=== PATIENT | female | born 1945 | race Hispanic/Latino ===

== ENCOUNTER 2023-10-20 12:40 | Inpatient (IN) | payer BC, MEDICARE ==
[2023-10-20] VITALS (7 sets, daily range): BP systolic 95–105; BP diastolic 43–56; PULSE 81–91; RESP 14–16; TEMP 97–98.1; O2SAT 100
[~2023-10-20] VITALS: Ht 152.4 cm; Wt 49.4 kg
[2023-10-20] MEDS ORDERED: ONDANSETRON HCL INJ 2MG/ML 2ML 2 MG/ML VIAL IV STA (13:15)
[2023-10-20 13:46] LABS: INR 1.76; PARTIAL THROMBOPLASTIN TIME 37.7 seconds (23.8-35.5); PROTHROMBIN TIME 20.9 seconds (11.9-14.5)
[2023-10-20] MEDS ORDERED: OCTREOTIDE ACETATE 0.05 MG/ML AMP IV STA (13:56)
[2023-10-20 13:58] LABS: EOSINOPHILS % 0.1 % (0.0-6.0); LYMPHOCYTES # (AUTO) 0.1 (1.0-3.2); LYMPHOCYTES % 1.5 % (18.0-39.1); MEAN CORPUSCULAR HEMOGLOBIN 23.4 pg (28-32); MEAN CORPUSCULAR VOLUME 86.7 fL (81-99); MONOCYTES # (AUTO) 0.3 (0.2-0.8); MONOCYTES % 4.6 % (4.4-11.3); NEUTROPHILS # (AUTO) 6.9 (2.1-6.9); NEUTROPHILS % 93.4 % (38.7-80.0); RED BLOOD COUNT 1.58 x10e6/uL (3.6-5.1); RED CELL DISTRIBUTION WIDTH 19.7 % (11.7-14.4); WHITE BLOOD COUNT 7.34 x10e3/uL (4.8-10.8)
[2023-10-20 14:01] LABS: PLATELET COUNT 76 x10e3/uL (140-360)
[2023-10-20 14:02] LABS: HEMATOCRIT 13.7 % (34.2-44.1); HEMOGLOBIN 3.7 g/dL (12.0-16.0)
[2023-10-20 14:04] LABS: ALANINE AMINOTRANSFERASE 44 IU/L (0-55); ALBUMIN 2.7 g/dL (3.5-5.0); ALBUMIN/GLOBULIN RATIO 0.9 (0.8-2.0); ALKALINE PHOSPHATASE 182 IU/L (40-150); ANION GAP 24.5 mmol/L (8-16); BILIRUBIN,TOTAL 2.9 mg/dL (0.2-1.2); CALCIUM 8.4 mg/dL (8.4-10.2); CARBON DIOXIDE 12 mmol/L (22-29); CHLORIDE 100 mmol/L (98-107); CREATINE KINASE 34 IU/L (29-168); CREATININE, SERUM 5.38 mg/dL (0.57-1.11); EST GLOMERULAR FILTRATION RATE 8 ML/MIN (>=60); GLUCOSE 356 mg/dL (74-118); MAGNESIUM 2.3 MG/DL (1.3-2.1); POTASSIUM 4.5 mmol/L (3.5-5.1); SODIUM 132 mmol/L (136-145); TOTAL PROTEIN 5.7 g/dL (6.5-8.1)
[2023-10-20 14:07] LABS: BLOOD UREA NITROGEN 176 mg/dL (7-26)
[2023-10-20 14:07] LABS: BILIRUBIN,URINE NEGATIVE (NEGATIVE); CLARITY,URINE SL CLOUDY (CLEAR); COLOR,URINE YELLOW (YELLOW); GLUCOSE, URINE 1+ (NEGATIVE); KETONES,URINE NEGATIVE (NEGATIVE); LEUKOCYTE ESTERASE ,URINE MODERATE (NEGATIVE); NITRITE,URINE NEGATIVE (NEGATIVE); PH,URINE 5.5 (5 - 7); PROTEIN,URINE DIPSTICK NEGATIVE (NEGATIVE); URINE UROBILINOGEN 0.2 mg/dL (0.2 - 1)
[2023-10-20] MEDS: OCTREOTIDE ACETATE 500 MCG in SODIUM CHLORIDE 0.9% 250ML 249 ML IV SCH ×2 (14:13→23:20)
[2023-10-20 14:16] LABS: BACTERIA,URINE MODERATE /HPF; EPITHELIAL CELLS,URINE FEW /LPF; RENAL EPITHELIAL CELLS,URINE MODERATE; TRANSITIONAL EPI CELLS,URINE MODERATE
[2023-10-20] MEDS ORDERED: SODIUM CHLORIDE 0.9% 250ML 500 ML ONE (15:17)
[2023-10-20] MEDS ORDERED: TORSEMIDE20 MG PO (16:11)
[2023-10-20] MEDS ORDERED: ALDACTONE25 MG PO (16:11)
[2023-10-20] MEDS ORDERED: NEPHRO-VITE TABL1 EA PO (16:11)
[2023-10-20] MEDS ORDERED: SODIUM BICARBO650 MG PO (16:11)
[2023-10-20] MEDS ORDERED: DEXTROSE 50% SYRINGE 50 ML IV PRN (16:30)
[2023-10-20 16:51] LABS: ABG HCO3 14 mmol/L (22-26); ABG PCO2 28 mmHg (35-45); ABG PH 7.31 (7.35-7.45); ABG PO2 100 mmHg (80-105); ABG TCO2 15
[2023-10-20] MEDS: INSULIN REGULAR, HUMAN 100 UNIT/1 ML SQ SCH ×2 (16:51→20:45)
[2023-10-20] MEDS ORDERED: SODIUM CHLORIDE 0.9% 250ML 250 ML ONE (19:37)
[2023-10-20] MEDS: SODIUM BICARBONATE 650 MG TAB PO SCH (20:46)
[2023-10-21] VITALS (8 sets, daily range): BP systolic 100–117; BP diastolic 47–61; PULSE 82–87; RESP 14–18; TEMP 97–97.8; O2SAT 100
[2023-10-21] MEDS ORDERED: FUROSEMIDE INJ 10 MG/ML 4 ML VIAL IV ONE (06:00)
[2023-10-21] MEDS: INSULIN REGULAR, HUMAN 100 UNIT/1 ML SQ SCH ×4 (07:30→20:48)
[2023-10-21] MEDS: SODIUM BICARBONATE 650 MG TAB PO SCH ×3 (08:26→20:48)
[2023-10-21] MEDS: SPIRONOLACTONE 25 MG TAB PO SCH (08:27)
[2023-10-21] MEDS: TORSEMIDE 10 MG TAB PO SCH (08:27)
[2023-10-21] MEDS: OCTREOTIDE ACETATE 500 MCG in SODIUM CHLORIDE 0.9% 250ML 249 ML IV SCH ×2 (09:18→19:20)
[2023-10-21 11:30] LABS: BASOPHILS % 0.2 % (0.0-1.0); EOSINOPHILS % 0.7 % (0.0-6.0); HEMATOCRIT 29.4 % (34.2-44.1); HEMOGLOBIN 9.4 g/dL (12.0-16.0); LYMPHOCYTES # (AUTO) 0.2 (1.0-3.2); LYMPHOCYTES % 3.7 % (18.0-39.1); MEAN CORPUSCULAR HEMOGLOBIN 27.3 pg (28-32); MEAN CORPUSCULAR VOLUME 85.5 fL (81-99); MONOCYTES # (AUTO) 0.3 (0.2-0.8); MONOCYTES % 4.9 % (4.4-11.3); NEUTROPHILS # (AUTO) 5.3 (2.1-6.9); PLATELET COUNT 29 x10e3/uL (140-360); RED BLOOD COUNT 3.44 x10e6/uL (3.6-5.1); RED CELL DISTRIBUTION WIDTH 16.4 % (11.7-14.4); WHITE BLOOD COUNT 5.87 x10e3/uL (4.8-10.8)
[2023-10-21 11:38] LABS: INR 1.41; PROTHROMBIN TIME 17.6 seconds (11.9-14.5)
[2023-10-21 11:57] LABS: ALANINE AMINOTRANSFERASE 40 IU/L (0-55); ALBUMIN 3.1 g/dL (3.5-5.0); ALKALINE PHOSPHATASE 145 IU/L (40-150); ANION GAP 24.3 mmol/L (8-16); CALCIUM 8.7 mg/dL (8.4-10.2); CARBON DIOXIDE 15 mmol/L (22-29); CHLORIDE 102 mmol/L (98-107); EST GLOMERULAR FILTRATION RATE 9 ML/MIN (>=60); GLUCOSE 191 mg/dL (74-118); POTASSIUM 4.3 mmol/L (3.5-5.1); SODIUM 137 mmol/L (136-145); TOTAL PROTEIN 6.2 g/dL (6.5-8.1)
[2023-10-21 12:00] LABS: BLOOD UREA NITROGEN 170 mg/dL (7-26)
[2023-10-21 12:07] LABS: TROPONIN I 0.059 ng/mL (0-0.300)
[2023-10-21] MEDS ORDERED: ALBUMIN 25% 12.5GM 50ML 100 ML IV ONE (15:36)
[2023-10-21] MEDS ORDERED: ALBUMIN 25% 25GM 100ML 100 ML IV ONE (15:45)
[2023-10-21] MEDS ORDERED: ALBUMIN 25% 25GM 100ML 0.25 GM/ML BTL IV ONE (15:45)
[2023-10-21 17:20] LABS: BODY FLUID APPEARANCE TURBID; BODY FLUID COLOR RED; BODY FLUID TYPE PERITONEAL; RBC,BODY FLUID 205000 cells/uL; WBC,BODY FLUID 386 cells/uL
[2023-10-21 17:52] LABS: ANION GAP 25.8 mmol/L (8-16); CALCIUM 8.5 mg/dL (8.4-10.2); CARBON DIOXIDE 12 mmol/L (22-29); CHLORIDE 103 mmol/L (98-107); CREATININE, SERUM 4.76 mg/dL (0.57-1.11); EST GLOMERULAR FILTRATION RATE 9 ML/MIN (>=60); GLUCOSE 214 mg/dL (74-118); POTASSIUM 4.8 mmol/L (3.5-5.1); SODIUM 136 mmol/L (136-145)
[2023-10-21 17:53] LABS: BLOOD UREA NITROGEN 165 mg/dL (7-26)
[2023-10-21 18:00] LABS: TROPONIN I 0.072 ng/mL (0-0.300)
[2023-10-21 18:24] LABS: LYMPHOCYTES,BODY FLUID 12 %; MONO/MACROPHG,BODY FLUID 12 %; NEUTROPHILS,BODY FLUID 72 %; OTHER CELLS,BODY FLUID 4 %; TOTAL CELLS COUNTED (DIFF) 100
[2023-10-22] VITALS (13 sets, daily range): BP systolic 103–119; BP diastolic 43–65; PULSE 85–101; RESP 14–21; TEMP 97–97.9; O2SAT 96–100
[2023-10-22] MEDS: OCTREOTIDE ACETATE 500 MCG in SODIUM CHLORIDE 0.9% 250ML 249 ML IV SCH ×2 (06:01→16:21)
[2023-10-22 06:34] LABS: BASOPHILS % 0.2 % (0.0-1.0); EOSINOPHILS % 0.3 % (0.0-6.0); HEMOGLOBIN 8.6 g/dL (12.0-16.0); LYMPHOCYTES # (AUTO) 0.3 (1.0-3.2); LYMPHOCYTES % 4.2 % (18.0-39.1); MEAN CORPUSCULAR HGB CONC 31.9 g/dL (31-35); MEAN CORPUSCULAR VOLUME 84.6 fL (81-99); MONOCYTES # (AUTO) 0.3 (0.2-0.8); MONOCYTES % 4.3 % (4.4-11.3); NEUTROPHILS # (AUTO) 5.4 (2.1-6.9); NEUTROPHILS % 90.7 % (38.7-80.0); RED BLOOD COUNT 3.19 x10e6/uL (3.6-5.1); RED CELL DISTRIBUTION WIDTH 16.6 % (11.7-14.4); WHITE BLOOD COUNT 5.98 x10e3/uL (4.8-10.8)
[2023-10-22 06:44] LABS: PLATELET COUNT 28 x10e3/uL (140-360)
[2023-10-22 07:19] LABS: ANION GAP 22.5 mmol/L (8-16); CARBON DIOXIDE 15 mmol/L (22-29); CHLORIDE 103 mmol/L (98-107); CREATININE, SERUM 4.71 mg/dL (0.57-1.11); EST GLOMERULAR FILTRATION RATE 9 ML/MIN (>=60); GLUCOSE 187 mg/dL (74-118); POTASSIUM 4.5 mmol/L (3.5-5.1); SODIUM 136 mmol/L (136-145)
[2023-10-22 07:20] LABS: BLOOD UREA NITROGEN 163 mg/dL (7-26)
[2023-10-22] MEDS: TORSEMIDE 10 MG TAB PO SCH (08:32)
[2023-10-22] MEDS: SPIRONOLACTONE 25 MG TAB PO SCH (08:33)
[2023-10-22] MEDS: SODIUM BICARBONATE 650 MG TAB PO SCH ×3 (08:33→20:31)
[2023-10-22] MEDS: INSULIN REGULAR, HUMAN 100 UNIT/1 ML SQ SCH ×4 (08:35→20:29)
[2023-10-22 10:41] LABS: LYMPHOCYTES % (MANUAL) 4 % (19-48); MONOCYTES % (MANUAL) 3 % (3.4-9.0); NEUTROPHILS % (MANUAL) 93 % (40-74); PLATELET ESTIMATE MARKEDLY DECREASED; PLATELET MORPHOLOGY COMMENT NORMAL; RBC MORPHOLOGY COMMENT NORMAL
[2023-10-22] MEDS: ONDANSETRON HCL INJ 2MG/ML 2ML 2 MG/ML VIAL IV PRN ×2 (13:13→23:49)
[2023-10-23 00:49] VITALS: BP 129/58; PULSE 94; RESP 17; TEMP 98.3; O2SAT 97
[2023-10-23] MEDS: OCTREOTIDE ACETATE 500 MCG in SODIUM CHLORIDE 0.9% 250ML 249 ML IV SCH (01:36)
[2023-10-23 04:00] VITALS: BP 107/56; PULSE 89; RESP 16; TEMP 98.1; O2SAT 100
[2023-10-23 08:00] VITALS: BP 107/56; PULSE 89; RESP 16; TEMP 98.1; O2SAT 100
[2023-10-23 08:01] VITALS: BP 116/59; PULSE 86; RESP 17; TEMP 97.4; O2SAT 97
[2023-10-23] MEDS: INSULIN REGULAR, HUMAN 100 UNIT/1 ML SQ SCH (08:25)
[2023-10-23] MEDS: TORSEMIDE 10 MG TAB PO SCH (09:27)
[2023-10-23] MEDS: SODIUM BICARBONATE 650 MG TAB PO SCH (09:27)
[2023-10-23] MEDS: SPIRONOLACTONE 25 MG TAB PO SCH (09:28)
== END 2023-10-23 10:18 | disposition home or self-care (01) | DRG 811 ==
LOC: ER 12:48 → ERHOLD 14:04 → ICU 15:24 → MED/SURG2 10-22 14:19
PROVIDERS: ADMIT Internal Medicine; ATTEND Internal Medicine
PROC: 30243K1 Transfusion of Nonautologous Frozen Plasma into Central Vein, Percutaneous Approach (ICD-10-PCS; 2023-10-20)
PROC: 30243N1 Transfusion of Nonautologous Red Blood Cells into Central Vein, Percutaneous Approach (ICD-10-PCS; 2023-10-20)
PROC: 0W9G3ZZ Drainage of Peritoneal Cavity, Percutaneous Approach (ICD-10-PCS; principal; 2023-10-21)
PROC: 4A033R1 Measurement of Arterial Saturation, Peripheral, Percutaneous Approach (ICD-10-PCS; 2023-10-21)
DX: D64.9 Anemia, unspecified (principal); N18.6 End stage renal disease; R18.8 Other ascites; K76.6 Portal hypertension; N04.9 Nephrotic syndrome with unspecified morphologic changes; E87.20 Acidosis, unspecified; J81.1 Chronic pulmonary edema; K74.60 Unspecified cirrhosis of liver; E11.22 Type 2 diabetes mellitus with diabetic chronic kidney disease; R00.0 Tachycardia, unspecified; R53.1 Weakness; R42 Dizziness and giddiness; R11.0 Nausea; E11.9 Type 2 diabetes mellitus without complications; R39.2 Extrarenal uremia; Z90.49 Acquired absence of other specified parts of digestive tract; Z20.822 Contact with and (suspected) exposure to COVID-19; R16.0 Hepatomegaly, not elsewhere classified
CPT/HCPCS: 36415; 36600; 49083; 71045; 74176; 74470; 80048; 80053; 81001; 82040; 82550; 82805; 82948; 83735; 83880; 84157; 84484; 85025; 85610; 85730; 86850; 86900; 86920; 87070; 87086; 87186; 87205; 88112; 88305; 89051; 93005; 99252; 99284; C1729; J1940; J2353; J2354; J2405; J7050; P9016; P9017; U0002